=== PATIENT | male | born 1935 | race Caucasian/White ===

== ENCOUNTER 2016-05-14 07:55 | Observation (INO) | payer MEDICARE, MEDICAID ==
[~2016-05-14] VITALS: Ht 165.1 cm; Wt 57.0 kg
[~2016-05-14 07:55] MED LIST: ADVAIR DISK1 IN; ADVAIR DISK1 INH; ADVAIR HF1 IN; ALBUTEROL0.083 % IN; ALBUTEROL2.5 MG/3 M IN; ALL DAY10 MG PO; AMLODIPINE BESYL5 MG PO; AMLODIPINE10 MG PO; AMLODIPINE5 MG OR; ASPIRIN EC81 MG PO; ASPIRIN ENTERIC81 MG PO; ATORVASTATIN CA10 MG PO; AZITHROMYCIN500 MG PO; AZITHROMYCIN600 MG OR; BABY ASPIRIN81 MG OR; BACTRIM DS1 TAB OR; BACTRIM DS1 TAB PO; BUDESONID2 IN; CARDIZEM60 MG PO; CEFUROXIME500 MG PO; CHERATUSSIN OR; CIPRO500 MG OR; CLOPIDOGREL75 MG PO; COMBIVENT IN; COMBIVENT RESPIMAT IN; COREG3.125 MG OR; DALIRESP500 MCG PO; DIABETA2.5 MG PO; DIOVAN160 MG OR; DOXYCYCL HYC100 M3 OR; DOXYCYCL HYC100 M4 PO; DUONEB IN; EXCEDRI1 OR; FAMOTIDINE40 M1 OR; FLEXERIL PO; FLUTICASONE50 MCG; FUROSEMIDE40 MG PO; GUAIFENESIN400 MG OR; HYDRALAZINE10 MG OR; HYDROCO/APAP1 TA9 PO; IMDUR30 MG OR; IMDUR60 MG OR; ISOSORB MONO30 MG PO; ISOSORB MONO60 MG PO; ISOSORBIDE MONO60 MG PO; K-DUR/KLOR-CON10 MEQ PO; KEFLEX500 M1 PO; KLOR-CON M2020 MEQ OR; LASIX 40 MG TAB40 MG PO; LASIX40 MG OR; LEVAQUIN500 MG OR; LEVAQUIN500 MG PO; LIPITOR20 MG PO; LIPITOR40 MG OR; LIPITOR40 MG PO; LORTAB 5-325 MG1 TAB PO; LOSARTAN POT100 MG PO; MEDDOSEPAK OR; MEDDOSEPAK PO; METOPROL TAR25 MG OR; MUCINEX DM1 TA1 PO; MUCINEX600 MG OR; NAPROSYN500 MG OR; NITROQUICK0.4 MG SL; NITROSTAT0.4 MG PO; NORVASC5 MG OR; OXISTAT EX; PLAVIX75 MG OR; PLAVIX75 MG PO; PREDNISONE10 MG PO; PREDNISONE2.5 MG OR; PREDNISONE2.5 MG PO; PREDNISONE5 MG PO; PREDNISONE50 MG PO; PREVACID30 M1 OR; PRILOSEC10 MG PO; PROAIR HFA IN; PULMICORT0.25 MG/2 IN; PULMICORT90 MCG IN; ROBITUSS12 OR; ROBITUSSIN AC OR; SERTRALINE25 MG PO; SPIRIVA IN; SYMBICORT1 AE1 IN; SYMBICORT1 AER IN; THEO-24200 MG PO; TUSSIN100 MG/5 M OR; TYLENOL 500MG TAB PO; ULTRAM50 M1 PO; ZITHROMAX250 MG PO; ZOFRAN ODT4 MG OR; ZOVIRAX400 MG PO; [UNRECOGNIZED DRUG - CODE] OR; [UNRECOGNIZED DRUG - OTHER] PO
--- NOTE | 2016-05-14 07:55 | NUR ---
PT TO ROOM 10 VIA STRETCHER BY EMS.
--- NOTE | 2016-05-14 08:00 | NUR ---
PT WITH HOB ELEVATED, AIRWAY PATENT, RESP NON LABORED AT THIS TIME. LS DIMINISHED, PT REPORTS SHAKING AND PAIN ALL OVER. VSS. AFEBRILE
[2016-05-14 08:50] LABS: HEMATOCRIT 34.2 % (39.0-50.0); HEMOGLOBIN 10.4 g/dl (14.0-18.0); IMMATURE GRANULOCYTES 0.5 % (0.0-1.0); MEAN CELL VOLUME 87.5 fL CALC (80.0-100.0); MEAN CORPUSCULAR HGB 26.6 pG CALC (26.0-32.0); MEAN CORPUSCULAR HGB CONC 30.4 g/L CALC (32.0-36.0); NEUT# 8.58 thou/uL (1.82-7.42); RED BLOOD COUNT 3.91 mill/uL (4.70-6.10); RED CELL DISTRI WIDTH 16.6 % (11.5-15.5)
[2016-05-14 08:53] LABS: PROTHROMBIN TIME 11.4 SECONDS (9.0-12.5)
[2016-05-14 08:56] LABS: ALBUMIN 3.6 g/dL (3.2-5.0); ALKALINE PHOSPHATASE 120 u/l (38-126); ANION GAP 17 (6-22 (CALC)); BILIRUBIN, TOTAL 0.4 mg/dL (0.0-1.4); BUN 22 mg/dL (8-23); BUN/CREATININE RATIO 21 (12-20 (CALC)); CALCIUM 9.4 mg/dL (8.4-10.2); CARBON DIOXIDE 30 mmol/l (22-30); CHLORIDE 103 mmol/l (95-108); CPK 42 u/l (52-200); GFR > 60 ML/MIN (>=60 (CALC)); GFR FOR AFR.AMER. > 60 ML/MIN (>=60 (CALC)); GLUCOSE 123 mg/dL (82-115); POTASSIUM 4.6 mmol/l (3.5-5.1); SGOT/AST 19 u/l (19-48); SGPT/ALT 23 u/l (11-66); SODIUM 145 mmol/l (137-146); TOTAL PROTEIN 7.4 g/dL (6.3-8.2)
[2016-05-14 09:14] LABS: INFLUENZA A NONE DETECTED (NONE DETECT); INFLUENZA B NONE DETECTED (NONE DETECT)
[2016-05-14 09:26] LABS: MYOGLOBIN 59 ng/mL (0 - 121)
--- NOTE | 2016-05-14 11:18 | NUR ---
PT OOB TO USE URINAL. NO ASSIST NEEDED. PT VOIDED 200CC CLEAR YELLOW URINE.
--- NOTE | 2016-05-14 11:40 | NUR ---
PT TAKEN TO MED SURG VIA STRETCHER IN STABLE CONDITION.
[2016-05-14 11:59] VITALS: BP 133/76
--- NOTE | 2016-05-14 14:29 | NUR ---
PT ARRIVED TO FLOOR VIA STRETCHER ACCOMPANIED BY CODIE RN @ [id number]. PT DENIES PAIN. SOB W/ EXERTION NOTED. FALL PRECAUTIONS REINFORCED. PT. [place] DEE-NI'. PLAN OF CARE DISCUSSED. CALL LIGHT REVIEWED AND IN REACH. PT STATES UNDERSTANDING.
[2016-05-14 16:00] VITALS: BP 127/75
--- NOTE | 2016-05-14 16:07 | NUR ---
PT SLEEPING AT THIS TIME. CALL LIGHT WITHIN REACH.
[2016-05-14 19:14] VITALS: BP 107/56
--- NOTE | 2016-05-14 19:20 | NUR ---
REPORT RECEIVED FROM CATRACHO MONTANEZ,DAYNURSE; PT.UPRIGHT IN RECLINER AT THIS TIME WATCHING TV; NO S/S OF DISTRESS AND DENIES ANY NEEDS AT THE MOMENT; CALL LIGHT IS W/IN REACH ALONG W/BST, PT.ENCOURAGED TO CALL NEEDS ARISE
--- NOTE | 2016-05-14 22:15 | NUR ---
PT.HAS MOVED FROM RECLINER TO BED, IS UPRIGHT W/LIGHTS OFF, PT.REPORTS THAT HE SLEEPS AT HIGH FOWLERS POSITION OR HIGHER DUE TO HIS ACID REFLUX, LEFT UPRIGHT TO SLEEP; PT.ASSESSED, NO S/S OF DISTRESS, REPORTS MILD HEADACHE, DENIES SOB AT THIS TIME;URINAL EMPTIED OF 100CC CL YELLOW URINE; CALL LIGHT W/IN REACH,
[2016-05-14 23:29] VITALS: BP 135/66
--- NOTE | 2016-05-15 04:00 | NUR ---
ED CALLED TO REPORT PT.RUNNING AFIB ON MENTAL HEALTH COUNSELOR, PT.APPEARS ASYMPTOMATIC, V/S ASSESSED @120/81,HR70, NO SIGNS OF DISTRESS OR DISCOMFORT AT THIS TIME; EKG ORDERED AND SHOWING NORMAL SINUS RHYTHM, THESE RESULTS WERE COMFIRMED WITH IN ED AND TELEMETRY IS READING NORMAL SR AT THIS TIME; WILL CONTINUE TO MONITOR PT.CLOSELY
[2016-05-15 05:26] LABS: ANION GAP 17 (6-22 (CALC)); BUN 36 mg/dL (8-23); BUN/CREATININE RATIO 28 (12-20 (CALC)); CALCIUM 9.2 mg/dL (8.4-10.2); CARBON DIOXIDE 29 mmol/l (22-30); CHLORIDE 99 mmol/l (95-108); CREATININE 1.3 mg/dL (0.7-1.3); GFR 53 ML/MIN (>=60 (CALC)); GFR FOR AFR.AMER. > 60 ML/MIN (>=60 (CALC)); GLUCOSE 232 mg/dL (82-115); POTASSIUM 4.7 mmol/l (3.5-5.1); SODIUM 139 mmol/l (137-146)
[2016-05-15 05:27] LABS: HEMATOCRIT 31.9 % (39.0-50.0); HEMOGLOBIN 9.9 g/dl (14.0-18.0); IMMATURE GRANULOCYTES 1.4 % (0.0-1.0); MEAN CELL VOLUME 85.8 fL CALC (80.0-100.0); MEAN CORPUSCULAR HGB 26.6 pG CALC (26.0-32.0); NEUT# 4.65 thou/uL (1.82-7.42); RED BLOOD COUNT 3.72 mill/uL (4.70-6.10); RED CELL DISTRI WIDTH 16.3 % (11.5-15.5)
--- NOTE | 2016-05-15 06:06 | NUR ---
PT.IS AWAKE, STAYED AWAKE ALL NIGHT, NO SLEEP; NON DISTRESSED, JUST CANNOT SLEEP
--- NOTE | 2016-05-15 07:28 | NUR ---
REPORT RECEIVED FROM CATRACHO STEVENSON. PT DENIES PAIN. NO SOB NOTED. PLAN OF CARE DISCUSSED. REPORTING OF CONCERNS ENCOURAGED. CALL LIGHT REVIEWED AND IN REACH. PT STATES UNDERSTANDING.
[2016-05-15 10:07] VITALS: BP 143/83
[2016-05-15] MEDS ORDERED: MEDDOSEPAK PO (10:14)
[2016-05-15] MEDS ORDERED: ZITHROMAX250 MG PO (10:14)
--- NOTE | 2016-05-15 11:48 | NUR ---
Discharge instructions given. Patient verbalizes understanding of same. Discharged in stable condition via Wheelchair to Home with friend. All belongings sent with pt.
== END 2016-05-15 11:49 ==
LOC: ENPENDDIS → ED 07:55 → ED-I 10:50 → ED 10:56 → MS2 10:57
PROVIDERS: Emergency Medicine; ADMIT Internal Medicine; ATTEND Internal Medicine
DX: J44.1 Chronic obstructive pulmonary disease with (acute) exacerbation (principal); E11.22 Type 2 diabetes mellitus with diabetic chronic kidney disease; I13.0 Hypertensive heart and chronic kidney disease with heart failure and stage 1 through stage 4 chronic kidney disease, or unspecified chronic kidney disease; N18.3 Chronic kidney disease, stage 3 (moderate); I50.9 Heart failure, unspecified; J96.11 Chronic respiratory failure with hypoxia; I25.10 Atherosclerotic heart disease of native coronary artery without angina pectoris; E78.5 Hyperlipidemia, unspecified; H91.90 Unspecified hearing loss, unspecified ear; R06.02 Shortness of breath; Z95.1 Presence of aortocoronary bypass graft; Z99.81 Dependence on supplemental oxygen; Z87.891 Personal history of nicotine dependence; Z95.5 Presence of coronary angioplasty implant and graft
CPT/HCPCS: G0378; J1956

== ENCOUNTER 2016-05-19 07:43 | Emergency (ER) | payer MEDICARE, MEDICAID ==
[~2016-05-19] VITALS: Ht 165.1 cm; Wt 70.0 kg
[2016-05-19 08:26] LABS: HEMATOCRIT 40.4 % (39.0-50.0); HEMOGLOBIN 12.3 g/dl (14.0-18.0); IMMATURE GRANULOCYTES 4.3 % (0.0-1.0); MEAN CELL VOLUME 87.4 fL CALC (80.0-100.0); MEAN CORPUSCULAR HGB 26.6 pG CALC (26.0-32.0); MEAN CORPUSCULAR HGB CONC 30.4 g/L CALC (32.0-36.0); NEUT# 13.53 thou/uL (1.82-7.42); RED BLOOD COUNT 4.62 mill/uL (4.70-6.10); RED CELL DISTRI WIDTH 17.2 % (11.5-15.5)
[2016-05-19 08:35] LABS: ALBUMIN 4.2 g/dL (3.2-5.0); ALKALINE PHOSPHATASE 126 u/l (38-126); ANION GAP 17 (6-22 (CALC)); BILIRUBIN, TOTAL 0.6 mg/dL (0.0-1.4); BUN 29 mg/dL (8-23); BUN/CREATININE RATIO 30 (12-20 (CALC)); CALCIUM 8.9 mg/dL (8.4-10.2); CARBON DIOXIDE 29 mmol/l (22-30); CHLORIDE 103 mmol/l (95-108); GFR > 60 ML/MIN (>=60 (CALC)); GFR FOR AFR.AMER. > 60 ML/MIN (>=60 (CALC)); GLUCOSE 120 mg/dL (82-115); POTASSIUM 4.9 mmol/l (3.5-5.1); SGOT/AST 29 u/l (19-48); SGPT/ALT 48 u/l (11-66); SODIUM 144 mmol/l (137-146)
[2016-05-19 08:48] LABS: MYOGLOBIN 86 ng/mL (0 - 121)
[2016-05-19 09:04] LABS: PROTHROMBIN TIME 11.4 SECONDS (9.0-12.5)
[2016-05-19 11:19] VITALS: BP 116/61
== END 2016-05-19 11:19 ==
LOC: ED 07:43 → ED-I 08:15 → ED 11:19
PROVIDERS: Emergency Medicine
PROC: 0BH17EZ Insertion of Endotracheal Airway into Trachea, Via Natural or Artificial Opening (ICD-10-PCS; principal; 2016-05-19)
DX: J96.00 Acute respiratory failure, unspecified whether with hypoxia or hypercapnia (principal); J44.1 Chronic obstructive pulmonary disease with (acute) exacerbation; R06.02 Shortness of breath; I10 Essential (primary) hypertension; H91.93 Unspecified hearing loss, bilateral
CPT/HCPCS: J2060

== ENCOUNTER 2016-11-20 10:59 | Inpatient (IN) | payer MEDICARE, MEDICAID ==
[~2016-11-20] VITALS: Ht 165.1 cm; Wt 59.0 kg
[~2016-11-20 10:59] MED LIST changes: -PRILOSEC10 MG PO; +PRILOSEC20 MG/CAP PO
[2016-11-20 11:45] LABS: HEMATOCRIT 40.9 % (39.0-50.0); IMMATURE GRANULOCYTES 4.4 % (0.0-1.0); MEAN CELL VOLUME 89.9 fL CALC (80.0-100.0); MEAN CORPUSCULAR HGB 28.6 pG CALC (26.0-32.0); MEAN CORPUSCULAR HGB CONC 31.8 g/L CALC (32.0-36.0); NEUT# 13.34 thou/uL (1.82-7.42); RED BLOOD COUNT 4.55 mill/uL (4.70-6.10); RED CELL DISTRI WIDTH 15.9 % (11.5-15.5)
[2016-11-20 12:03] LABS: ALBUMIN 3.7 g/dL (3.2-5.0); ALKALINE PHOSPHATASE 156 u/l (38-126); ANION GAP 20 (6-22 (CALC)); BILIRUBIN, TOTAL 0.7 mg/dL (0.0-1.4); BUN 36 mg/dL (8-23); BUN/CREATININE RATIO 30 (12-20 (CALC)); CALCIUM 10.3 mg/dL (8.4-10.2); CARBON DIOXIDE 29 mmol/l (22-30); CHLORIDE 101 mmol/l (95-108); CREATININE 1.2 mg/dL (0.7-1.3); GFR 58 ML/MIN (>=60 (CALC)); GFR FOR AFR.AMER. > 60 ML/MIN (>=60 (CALC)); GLUCOSE 177 mg/dL (82-115); SGOT/AST 32 u/l (19-48); SGPT/ALT 30 u/l (11-66); SODIUM 145 mmol/l (137-146); TOTAL PROTEIN 7.6 g/dL (6.3-8.2)
[2016-11-20 12:15] LABS: MYOGLOBIN 330 ng/mL (0 - 121)
[2016-11-20] MEDS ORDERED: BUMETANIDE0.5 MG PO (12:57)
[2016-11-20] MEDS ORDERED: ISOSORB MONO30 MG PO (12:58)
[2016-11-20 14:00] VITALS: BP 105/59
[2016-11-20 14:15] LABS: URINE BILIRUBIN - DIPSTICK NEGATIVE (NEGATIVE); URINE BLOOD DIPSTICK TRACE-LYSED (NEGATIVE); URINE COLOR YELLOW; URINE GLUCOSE - DIPSTICK NEGATIVE (NEGATIVE); URINE KETONE NEGATIVE (NEGATIVE); URINE LEUK ESTERASE NEGATIVE (NEGATIVE); URINE NITRITE - DIPSTICK NEGATIVE (Negative); URINE PROTEIN - DIPSTICK 30 mg/dL (NEG-TRACE); URINE SPECIFIC GRAVITY 1.025; URINE UROBILINOGEN - DIPSTICK 0.2 E.U./dL (0.2)
[2016-11-20 14:16] LABS: URINE CLARITY SLIGHT CLOUDY; URINE MUCUS MODERATE hpf (NONE-FEW); URINE RBC 0-2 RBC/hpf (0-5)
[2016-11-20 15:20] VITALS: BP 103/61
[2016-11-20 19:25] VITALS: BP 105/66
[2016-11-21 03:45] VITALS: BP 130/62
[2016-11-21 06:06] LABS: HEMATOCRIT 35.9 % (39.0-50.0); HEMOGLOBIN 11.5 g/dl (14.0-18.0); MEAN CELL VOLUME 90.4 fL CALC (80.0-100.0); RED BLOOD COUNT 3.97 mill/uL (4.70-6.10); RED CELL DISTRI WIDTH 15.9 % (11.5-15.5)
[2016-11-21 06:07] LABS: ANION GAP 15 (6-22 (CALC)); BUN 31 mg/dL (8-23); BUN/CREATININE RATIO 32 (12-20 (CALC)); CALCIUM 9.4 mg/dL (8.4-10.2); CARBON DIOXIDE 32 mmol/l (22-30); CHLORIDE 102 mmol/l (95-108); GFR > 60 ML/MIN (>=60 (CALC)); GFR FOR AFR.AMER. > 60 ML/MIN (>=60 (CALC)); GLUCOSE 153 mg/dL (82-115); POTASSIUM 4.4 mmol/l (3.5-5.1); SODIUM 145 mmol/l (137-146)
[2016-11-21 08:24] VITALS: BP 141/73
[2016-11-21 14:29] LABS: C. DIFFICILE TOXIN A&B NEGATIVE (NEGATIVE)
[2016-11-21 16:00] VITALS: BP 124/71
[2016-11-21 20:15] VITALS: BP 134/74
[2016-11-22 04:49] VITALS: BP 119/67
[2016-11-22 06:03] LABS: ANION GAP 15 (6-22 (CALC)); BUN 27 mg/dL (8-23); BUN/CREATININE RATIO 31 (12-20 (CALC)); CARBON DIOXIDE 30 mmol/l (22-30); CHLORIDE 104 mmol/l (95-108); CREATININE 0.9 mg/dL (0.7-1.3); GFR > 60 ML/MIN (>=60 (CALC)); GFR FOR AFR.AMER. > 60 ML/MIN (>=60 (CALC)); GLUCOSE 200 mg/dL (82-115); SODIUM 144 mmol/l (137-146)
[2016-11-22 06:05] LABS: HEMATOCRIT 34.5 % (39.0-50.0); HEMOGLOBIN 10.9 g/dl (14.0-18.0); IMMATURE GRANULOCYTES 5.6 % (0.0-1.0); MEAN CELL VOLUME 90.8 fL CALC (80.0-100.0); MEAN CORPUSCULAR HGB 28.7 pG CALC (26.0-32.0); MEAN CORPUSCULAR HGB CONC 31.6 g/L CALC (32.0-36.0); PLATELET COUNT 418 thou/uL (130-400); RED CELL DISTRI WIDTH 15.9 % (11.5-15.5)
[2016-11-22 06:43] LABS: MANUAL DIFFERENTIAL YES
[2016-11-22 08:48] VITALS: BP 140/68
[2016-11-22 16:21] VITALS: BP 126/64
[2016-11-22 19:18] VITALS: BP 136/71
[2016-11-23 05:22] VITALS: BP 140/64
[2016-11-23 05:22] LABS: HEMATOCRIT 31.6 % (39.0-50.0); IMMATURE GRANULOCYTES 5.4 % (0.0-1.0); MEAN CELL VOLUME 91.1 fL CALC (80.0-100.0); MEAN CORPUSCULAR HGB 28.8 pG CALC (26.0-32.0); MEAN CORPUSCULAR HGB CONC 31.6 g/L CALC (32.0-36.0); NEUT# 11.33 thou/uL (1.82-7.42); RED BLOOD COUNT 3.47 mill/uL (4.70-6.10); RED CELL DISTRI WIDTH 15.9 % (11.5-15.5)
[2016-11-23 05:29] LABS: ALBUMIN 2.3 g/dL (3.2-5.0); ALKALINE PHOSPHATASE 84 u/l (38-126); AMYLASE < 30 u/l (30-110); ANION GAP 12 (6-22 (CALC)); BILIRUBIN, TOTAL 0.2 mg/dL (0.0-1.4); BUN 25 mg/dL (8-23); BUN/CREATININE RATIO 32 (12-20 (CALC)); CALCIUM 8.6 mg/dL (8.4-10.2); CARBON DIOXIDE 29 mmol/l (22-30); CHLORIDE 106 mmol/l (95-108); CREATININE 0.8 mg/dL (0.7-1.3); GFR > 60 ML/MIN (>=60 (CALC)); GFR FOR AFR.AMER. > 60 ML/MIN (>=60 (CALC)); GLUCOSE 205 mg/dL (82-115); LIPASE < 10 u/l (23-300); POTASSIUM 3.9 mmol/l (3.5-5.1); SGOT/AST 15 u/l (19-48); SGPT/ALT 24 u/l (11-66); SODIUM 143 mmol/l (137-146); TOTAL PROTEIN 4.9 g/dL (6.3-8.2)
[2016-11-23 08:34] VITALS: BP 142/69
[2016-11-23 15:38] VITALS: BP 122/65
[2016-11-23 18:40] VITALS: BP 130/64
[2016-11-24 03:45] VITALS: BP 140/67
[2016-11-24 06:08] LABS: HEMATOCRIT 32.4 % (39.0-50.0); HEMOGLOBIN 10.3 g/dl (14.0-18.0); MEAN CELL VOLUME 90.5 fL CALC (80.0-100.0); MEAN CORPUSCULAR HGB 28.8 pG CALC (26.0-32.0); MEAN CORPUSCULAR HGB CONC 31.8 g/L CALC (32.0-36.0); PLATELET COUNT 383 thou/uL (130-400); RED BLOOD COUNT 3.58 mill/uL (4.70-6.10); RED CELL DISTRI WIDTH 15.7 % (11.5-15.5)
[2016-11-24 06:18] LABS: ANION GAP 11 (6-22 (CALC)); BUN 22 mg/dL (8-23); BUN/CREATININE RATIO 28 (12-20 (CALC)); CALCIUM 8.7 mg/dL (8.4-10.2); CARBON DIOXIDE 29 mmol/l (22-30); CHLORIDE 103 mmol/l (95-108); CREATININE 0.8 mg/dL (0.7-1.3); GFR > 60 ML/MIN (>=60 (CALC)); GFR FOR AFR.AMER. > 60 ML/MIN (>=60 (CALC)); GLUCOSE 159 mg/dL (82-115); MAGNESIUM 1.8 mg/dL (1.6-2.3); POTASSIUM 4.1 mmol/l (3.5-5.1); SODIUM 139 mmol/l (137-146)
[2016-11-24 06:59] LABS: BAND 1 % (0-8); IMMATURE GRANULOCYTES 6.8 % (0.0-1.0); MANUAL DIFFERENTIAL YES
[2016-11-24 07:31] VITALS: BP 130/66
[2016-11-24 16:02] VITALS: BP 129/70
[2016-11-24 19:05] VITALS: BP 130/67
[2016-11-25 03:37] VITALS: BP 131/74
[2016-11-25 06:30] LABS: HEMATOCRIT 36.5 % (39.0-50.0); HEMOGLOBIN 11.7 g/dl (14.0-18.0); IMMATURE GRANULOCYTES 5.1 % (0.0-1.0); MEAN CELL VOLUME 89.7 fL CALC (80.0-100.0); MEAN CORPUSCULAR HGB 28.7 pG CALC (26.0-32.0); MEAN CORPUSCULAR HGB CONC 32.1 g/L CALC (32.0-36.0); PLATELET COUNT 425 thou/uL (130-400); RED BLOOD COUNT 4.07 mill/uL (4.70-6.10); RED CELL DISTRI WIDTH 15.6 % (11.5-15.5)
[2016-11-25 06:46] LABS: ANION GAP 13 (6-22 (CALC)); BUN 22 mg/dL (8-23); BUN/CREATININE RATIO 30 (12-20 (CALC)); CALCIUM 8.7 mg/dL (8.4-10.2); CARBON DIOXIDE 31 mmol/l (22-30); CHLORIDE 99 mmol/l (95-108); CREATININE 0.8 mg/dL (0.7-1.3); GFR > 60 ML/MIN (>=60 (CALC)); GFR FOR AFR.AMER. > 60 ML/MIN (>=60 (CALC)); GLUCOSE 209 mg/dL (82-115); MAGNESIUM 1.8 mg/dL (1.6-2.3); POTASSIUM 4.6 mmol/l (3.5-5.1); SODIUM 138 mmol/l (137-146)
[2016-11-25 07:04] LABS: MANUAL DIFFERENTIAL YES
[2016-11-25 07:05] LABS: BAND 2 % (0-8)
[2016-11-25 08:44] VITALS: BP 131/74
[2016-11-25] MEDS ORDERED: ZITHROMAX500 MG PO (10:16)
[2016-11-25] MEDS ORDERED: ROBITUSSIN AC10 ML PO (10:16)
[2016-11-25] MEDS ORDERED: PREDNISONE10 MG PO (10:16)
[2016-11-25] MEDS ORDERED: VANTIN200 M1 PO (10:16)
[2016-11-25] MEDS ORDERED: FLORASTOR250 M1 PO (10:16)
[2016-11-25] MEDS ORDERED: DUONEB IN (10:16)
== END 2016-11-25 12:35 | disposition home or self-care (01) | DRG 190 ==
LOC: ED 10:59 → ED-I 12:06 → ED 12:55 → MS2 12:56
PROVIDERS: Emergency Medicine; Internal Medicine; Nurse Practitioner Family; ADMIT Internal Medicine; ATTEND Internal Medicine
DX: J44.0 Chronic obstructive pulmonary disease with (acute) lower respiratory infection (principal); J18.9 Pneumonia, unspecified organism; J96.11 Chronic respiratory failure with hypoxia; I13.0 Hypertensive heart and chronic kidney disease with heart failure and stage 1 through stage 4 chronic kidney disease, or unspecified chronic kidney disease; I50.22 Chronic systolic (congestive) heart failure; F03.90 Unspecified dementia, unspecified severity, without behavioral disturbance, psychotic disturbance, mood disturbance, and anxiety; J96.12 Chronic respiratory failure with hypercapnia; J44.1 Chronic obstructive pulmonary disease with (acute) exacerbation; E11.22 Type 2 diabetes mellitus with diabetic chronic kidney disease; N18.3 Chronic kidney disease, stage 3 (moderate); H91.90 Unspecified hearing loss, unspecified ear; I25.10 Atherosclerotic heart disease of native coronary artery without angina pectoris; I25.5 Ischemic cardiomyopathy; D50.9 Iron deficiency anemia, unspecified; E78.5 Hyperlipidemia, unspecified; K21.9 Gastro-esophageal reflux disease without esophagitis; M19.90 Unspecified osteoarthritis, unspecified site; K76.89 Other specified diseases of liver; N28.1 Cyst of kidney, acquired; I25.2 Old myocardial infarction; Z99.81 Dependence on supplemental oxygen; Z87.891 Personal history of nicotine dependence; Z95.5 Presence of coronary angioplasty implant and graft; Z95.1 Presence of aortocoronary bypass graft

== ENCOUNTER 2017-03-12 11:26 | Inpatient (IN) | payer MEDICARE, MEDICAID ==
[~2017-03-12] VITALS: Ht 165.1 cm; Wt 54.5 kg
[~2017-03-12 11:26] MED LIST changes: +BUMETANIDE0.5 MG PO; +FLORASTOR250 M1 PO; +ROBITUSSIN AC10 ML PO; +VANTIN200 M1 PO; +ZITHROMAX500 MG PO
--- NOTE | 2017-03-12 11:36 | NUR ---
PT IN BATHROOM WHEN CALLED
--- NOTE | 2017-03-12 12:01 | NUR ---
PT TO ROOM PER W/C
--- NOTE | 2017-03-12 12:30 | NUR ---
PATIENT RESTING ON STRETCHER, PITTING EDEMA +4 TO BILATERAL LOWER EXTREMITIES. DEMINISHED LUNG SOUNDS BILATERALLY.
--- NOTE | 2017-03-12 13:00 | NUR ---
PATIENT BECAME SHORT OF BREATH WHILE BEING ASSISTED TO SIDE OF BED TO USE URINAL. INFORMED.
[2017-03-12 13:19] LABS: HEMATOCRIT 33.3 % (39.0-50.0); HEMOGLOBIN 10.4 g/dl (14.0-18.0); IMMATURE GRANULOCYTES 0.3 % (0.0-1.0); MEAN CELL VOLUME 99.4 fL CALC (80.0-100.0); MEAN CORPUSCULAR HGB CONC 31.2 g/L CALC (32.0-36.0); NEUT# 5.51 thou/uL (1.82-7.42); RED BLOOD COUNT 3.35 mill/uL (4.70-6.10); RED CELL DISTRI WIDTH 14.5 % (11.5-15.5)
[2017-03-12 13:41] LABS: ANION GAP 14 (6-22 (CALC)); BUN 19 mg/dL (8-23); BUN/CREATININE RATIO 19 (12-20 (CALC)); CALCIUM 10.1 mg/dL (8.4-10.2); CARBON DIOXIDE 27 mmol/l (22-30); CHLORIDE 105 mmol/l (95-108); GFR > 60 ML/MIN (>=60 (CALC)); GFR FOR AFR.AMER. > 60 ML/MIN (>=60 (CALC)); GLUCOSE 106 mg/dL (82-115); POTASSIUM 4.1 mmol/l (3.5-5.1); SODIUM 142 mmol/l (137-146)
--- NOTE | 2017-03-12 13:56 | NUR ---
PATIENT RESTING ON STRETCHER, CALL LIGHT WITHIN REACH. WARM BLANKETS PROVIDED PER REQUEST. WILL CONTINUE TO MONITOR.
--- NOTE | 2017-03-12 14:23 | NUR ---
PATIENT CONFIRMS TAKING MEDICATION RECONCILED BUT UNABLE TO TELL DATE AND TIME THAT PATIENT LAST TOOK MEDS
--- NOTE | 2017-03-12 14:30 | NUR ---
MD AT BEDSIDE TO DISCUSS RESULTS.
--- NOTE | 2017-03-12 15:22 | NUR ---
REPORT GIVEN TO SHER BUTCHER.
--- NOTE | 2017-03-12 15:53 | NUR ---
DR LATHAM @ BEDSIDE WITH PT.
--- NOTE | 2017-03-12 16:00 | NUR ---
PT ARRIVED FROM ER VIA STRETCHER ACCOMPANIED BY STAFF. IV SITE IS FREE FROM REDNESS OR EDEMA. TELE MONITOR IN PLACE.
--- NOTE | 2017-03-12 16:17 | NUR ---
PTS RN BUSY WITH A STEMI. THIS RN TRANSPORTED PT TO [facility] VIA STRETCHER W/TELE IN STABLE CONDITION. PTS BELONGINGS; CLOTHES, CANE, PORT O2 WITH PT.
[2017-03-12 16:23] VITALS: BP 134/75
[2017-03-12] MEDS ORDERED: VALTREX500 MG PO (16:29)
--- NOTE | 2017-03-12 17:14 | NUR ---
ASSESSMENT IS COMPLETED: IV SITE IS FREE FROM REDNESS OR EDEMA. PT HAS +3 PITTING EDEMA NOTED ON BILATERAL FEET. BREATH SOUNDS ARE DIMINISHED AND CLEAR. O2 @ 2LITERS WITH NC. CONTINUE TO OBSERVE AND MONITOR.
--- NOTE | 2017-03-12 19:10 | NUR ---
STANDING ON SIDE OF BED USING URINAL WITH JUAN DAVID ADAMS'S STANDBY ASSISTNACE.
[2017-03-12 19:30] VITALS: BP 129/76
--- NOTE | 2017-03-12 19:45 | NUR ---
PT IN BED WATCHING TV, RESPIRATIONS EVEN AND UNLABORED ON O2 @3L VIA NC. BUMEX IV GIVEN AT THIS TIME, URINAL AT BED SIDE. PT IS VERY [place]. ENCOURAGED TO USE CALL LIGHT FOR ASSISTANCE. WILL CONTINUE TO MONITOR.
--- NOTE | 2017-03-12 21:00 | NUR ---
ACCUCHECK 278, BED TIME SNACK PROVIDED.
--- NOTE | 2017-03-12 22:00 | NUR ---
PT CALLING FOR A SECOND SNACK AND A DRINK, ATTEMPTED TO DO TEACHING ON DIABETES, PT IS SO [place], STATE "WHAT I CANT HEAR YOU", PROVIDED WITH RIGO DODD AND DIET DRINK.
--- NOTE | 2017-03-12 23:00 | NUR ---
CALLING FOR COFFEE, PROIVED WITH DECAF COFFEE AT THIS TIME.
[2017-03-12 23:52] VITALS: BP 109/61
--- NOTE | 2017-03-13 01:00 | NUR ---
PT NOTED TO BE ANXIOUS, STANDING ON SIDE OF BED VOIDING 100ML IN URINAL THEN BACK TO BED, C/O RIGHT HIP PAIN 10/08 NEW ORDER RECEVIED FROM DR. MALONEY FOR XANAX X1 AND TRAMADOL PRN FOR PAIN, MEDICATED AT 0133. WILL CONTINUE TO MONITOR.
--- NOTE | 2017-03-13 03:30 | NUR ---
SITTING ON SIDE OF BED REQUESTING A DIET SODA AND SOMETHING TO EAT. DIET DRINK PROVIDED, RESPIRATIONS EVEN AND UNLABORED, DENIES PAIN AT THIS TIME.
[2017-03-13 05:10] VITALS: BP 124/61
[2017-03-13 06:40] LABS: HEMATOCRIT 29.1 % (39.0-50.0); HEMOGLOBIN 9.4 g/dl (14.0-18.0); MEAN CORPUSCULAR HGB 31.3 pG CALC (26.0-32.0); MEAN CORPUSCULAR HGB CONC 32.3 g/L CALC (32.0-36.0)
[2017-03-13 06:53] LABS: ANION GAP 16 (6-22 (CALC)); BUN 34 mg/dL (8-23); BUN/CREATININE RATIO 27 (12-20 (CALC)); CALCIUM 9.7 mg/dL (8.4-10.2); CARBON DIOXIDE 31 mmol/l (22-30); CHLORIDE 98 mmol/l (95-108); CREATININE 1.2 mg/dL (0.7-1.3); GFR 58 ML/MIN (>=60 (CALC)); GFR FOR AFR.AMER. > 60 ML/MIN (>=60 (CALC)); GLUCOSE 258 mg/dL (82-115); POTASSIUM 4.4 mmol/l (3.5-5.1); SODIUM 141 mmol/l (137-146)
--- NOTE | 2017-03-13 07:23 | NUR ---
BEDSIDE REPORT RECEIVED FROM SHER MARISCAL. PT SITTING UPRIGHT IN BED. SLEEPING. CALL LIGHT WITHIN REACH.
[2017-03-13 08:18] VITALS: BP 150/77
[2017-03-13 12:36] VITALS: BP 114/63
--- NOTE | 2017-03-13 15:56 | NUR ---
PT IN SEMI FOWLERS POSITION. SLEEPNIG AT THIS TIME. CALL LIGHT WITHIN REACH.
[2017-03-13 17:36] VITALS: BP 125/74
[2017-03-13 18:05] VITALS: BP 114/52
--- NOTE | 2017-03-13 19:30 | NUR ---
PT ALERT AND ORIENTED. HARD OF HEARING. RESP EVEN AND UNLABORED WITH O2 IN PLACE. LUNGS DIMINISHED THROUGHOUT. NO DISTRESSED NOTED. TELE IN PLACE. ABD SOFT WITH ACTIVE BOWEL SOUNDS. +2 PITTING EDEMA ANKLES NOTED; PT ENCOURAGED TO ELEVATE. PEDAL PULSES PALPATED BILAT. IV LFA PATENT, FLUSHED WITHOUT ANY DIFFICULTY. PT DENIES ANY PAIN OR DISCOMFORT. SAFETY PRECAUTIONS REINFORCED. FREQUENT ROUNDS MADE. CALL LIGHT WITHIN REACH.
[2017-03-13 23:59] VITALS: BP 105/53
--- NOTE | 2017-03-14 00:02 | NUR ---
PT APPEARS TO BE SLEEPING. RESP EVEN AND UNLABORED, O2 IN PLACE. NO DISTRESS NOTED. TELE IN PLACE. CALL LIGHT WITHIN REACH.
--- NOTE | 2017-03-14 03:10 | NUR ---
PT OOB TO USE BEDSIDE URINAL. PT DENIES ANY PAIN OR DISCOMFORT. RESP EVEN AND UNLABORED WITH O2 IN PLACE. PT ALERT AND ORIENTED; AGE AND MONTH CORRECT. TELE IN PLACE. PT ASSISTED BACK TO BED. CALL LIGHT WITHIN REACH.
[2017-03-14 05:08] LABS: HEMATOCRIT 28.8 % (39.0-50.0); HEMOGLOBIN 9.5 g/dl (14.0-18.0); IMMATURE GRANULOCYTES 0.4 % (0.0-1.0); MEAN CORPUSCULAR HGB 32.3 pG CALC (26.0-32.0); NEUT# 9.9 thou/uL (1.82-7.42); RED BLOOD COUNT 2.94 mill/uL (4.70-6.10); RED CELL DISTRI WIDTH 14.1 % (11.5-15.5)
[2017-03-14 05:12] VITALS: BP 130/66
[2017-03-14 05:21] LABS: ANION GAP 18 (6-22 (CALC)); BUN 44 mg/dL (8-23); BUN/CREATININE RATIO 37 (12-20 (CALC)); CALCIUM 9.8 mg/dL (8.4-10.2); CARBON DIOXIDE 30 mmol/l (22-30); CHLORIDE 98 mmol/l (95-108); CREATININE 1.2 mg/dL (0.7-1.3); GFR 58 ML/MIN (>=60 (CALC)); GFR FOR AFR.AMER. > 60 ML/MIN (>=60 (CALC)); GLUCOSE 240 mg/dL (82-115); POTASSIUM 4.3 mmol/l (3.5-5.1); SODIUM 141 mmol/l (137-146)
--- NOTE | 2017-03-14 07:45 | NUR ---
REPORT RECEIVED FROM SHER FERNANDO. PT IN SEMI FOWLERS POSITION. DENIES PAIN. COMPLAINS OF SORE THROAT. FALL PRECAUTIONS REINFORCED. REPORTING OF CONCERNS ENCORUAGED. CALL LIGHT REVIEWED AND IN REACH. PT STATES UNDERSTANDING.
[2017-03-14 08:59] VITALS: BP 122/63
--- NOTE | 2017-03-14 10:00 | NUR ---
DR. MALONEY IN TO SEE PT AT THIS TIME.
[2017-03-14 12:30] VITALS: BP 139/60
[2017-03-14 16:51] VITALS: BP 104/53
--- NOTE | 2017-03-14 17:21 | NUR ---
PT REQUEST BREATHING TREATMENT. NO SOB NOTED. DUONEB STARTED AT THIS TIME. WILL CONTINUE TO MONITOR.
[2017-03-14 18:05] VITALS: BP 137/67
--- NOTE | 2017-03-14 19:45 | NUR ---
PT ALERT AND ORIENTED. RESP EVEN AND UNLABORED WITH O2 IN PLACE. LUNGS DIMINISHED THROUGHOUT. NO DISTRESS NOTED. TELE IN PLACE. ABD SOFT WITH ACTIVE BOWEL SOUNDS. EDEMA +1 ANKLES BILAT NOTED; PT ENCOURAGED TO ELEVATE. IV LFA FLUSHED WITHOUT DIFFICULTY. PT DENIES ANY PAIN OR DISCOMFORT. PT HARD OF HEARING. PT ENCOURAGED TO USE CALL LIGHT FOR ASSISTANCE. FREQUENT ROUNDS MADE. CALL LIGHT WITHIN REACH.
--- NOTE | 2017-03-15 | NUR ---
PT STATES ABD PAIN; 9. PAIN ADDRESSED. RESP EVEN AND UNLABORED WITH O2 IN PLACE. TELE IN PLACE. WILL CONTINUE EVALUATE PAIN. PT REPOSITIONED FOR COMFORT. CALL LIGHT WITHIN REACH.
[2017-03-15 00:12] VITALS: BP 134/66
--- NOTE | 2017-03-15 04:05 | NUR ---
RESP EVEN AND UNLABORED WITH O2 IN PLACE. NO DISTRESS NOTED. TELE IN PLACE. CALL LIGHT WITHIN REACH.
[2017-03-15 05:17] VITALS: BP 141/71
[2017-03-15 05:42] LABS: HEMATOCRIT 29.9 % (39.0-50.0); HEMOGLOBIN 9.6 g/dl (14.0-18.0); IMMATURE GRANULOCYTES 0.8 % (0.0-1.0); MEAN CELL VOLUME 98.7 fL CALC (80.0-100.0); MEAN CORPUSCULAR HGB 31.7 pG CALC (26.0-32.0); MEAN CORPUSCULAR HGB CONC 32.1 g/L CALC (32.0-36.0); NEUT# 8.6 thou/uL (1.82-7.42); RED BLOOD COUNT 3.03 mill/uL (4.70-6.10); RED CELL DISTRI WIDTH 14.3 % (11.5-15.5)
[2017-03-15 05:59] LABS: ANION GAP 15 (6-22 (CALC)); BUN 50 mg/dL (8-23); BUN/CREATININE RATIO 39 (12-20 (CALC)); CALCIUM 9.8 mg/dL (8.4-10.2); CARBON DIOXIDE 30 mmol/l (22-30); CHLORIDE 99 mmol/l (95-108); CREATININE 1.3 mg/dL (0.7-1.3); GFR 53 ML/MIN (>=60 (CALC)); GFR FOR AFR.AMER. > 60 ML/MIN (>=60 (CALC)); GLUCOSE 194 mg/dL (82-115); POTASSIUM 4.5 mmol/l (3.5-5.1); SODIUM 140 mmol/l (137-146)
[2017-03-15 07:00] VITALS: BP 126/66
--- NOTE | 2017-03-15 07:45 | NUR ---
RECEIVED BEDSIDE REPORT FROM KASSIE OLIVAREZ. IN HIGH FOWLERS EATING BREAKFAST. RESPS EVEN AND UNLABORED ON O2 VIA NC, TELE MONITOR IN PLACE. DENIES PAIN OR DISCOMFORT. PLAN OF CARE DISCUSSED. SAFETY PRECAUTIONS REINFORCED. BED IN LOWEST POSITION WITH WHEELS LOCKED. CALL LIGHT WITHIN REACH. ENCOURAGED PT TO CALL FOR ANY NEEDS.
--- NOTE | 2017-03-15 11:35 | NUR ---
SITTING IN BEDSIDE CHAIR, RESPS EVEN AND UNLABORED ON O2 VIA NC, TELE MONITOR IN PLACE. DENIES PAIN OR DISCOMFORT. DR WALDRON IN WITH PT, NEW ORDERS RECEIVED. CALL LIGHT WITHIN REACH. WILL CONTINUE TO MONITOR.
[2017-03-15 12:10] VITALS: BP 132/55
[2017-03-15] MEDS ORDERED: BUMETANIDE1 MG PO (12:54)
[2017-03-15] MEDS ORDERED: PREDNISONE10 MG PO (12:54)
--- NOTE | 2017-03-15 13:05 | NUR ---
DR CLARK IN WITH PT, NO NEW ORDERS RECEIVED.
--- NOTE | 2017-03-15 16:58 | NUR ---
Discharge instructions given. Patient verbalizes understanding of same. Discharged in stable condition via Wheelchair to Home with friend. All belongings sent with pt.
== END 2017-03-15 16:54 | disposition home health service (06) | DRG 191 ==
LOC: ED 11:26 → ED-I 14:35 → ED 14:50 → MS2 14:51
PROVIDERS: Family Medicine; Internal Medicine; ADMIT Internal Medicine; ATTEND Internal Medicine
PROC: 3E0234Z Introduction of Serum, Toxoid and Vaccine into Muscle, Percutaneous Approach (ICD-10-PCS; principal; 2017-03-14)
DX: J44.1 Chronic obstructive pulmonary disease with (acute) exacerbation (principal); I13.0 Hypertensive heart and chronic kidney disease with heart failure and stage 1 through stage 4 chronic kidney disease, or unspecified chronic kidney disease; J96.11 Chronic respiratory failure with hypoxia; E11.22 Type 2 diabetes mellitus with diabetic chronic kidney disease; I50.22 Chronic systolic (congestive) heart failure; I25.5 Ischemic cardiomyopathy; I25.10 Atherosclerotic heart disease of native coronary artery without angina pectoris; N18.3 Chronic kidney disease, stage 3 (moderate); E78.5 Hyperlipidemia, unspecified; D64.9 Anemia, unspecified; H91.90 Unspecified hearing loss, unspecified ear; H54.7 Unspecified visual loss; M19.90 Unspecified osteoarthritis, unspecified site; K21.9 Gastro-esophageal reflux disease without esophagitis; Z95.1 Presence of aortocoronary bypass graft; Z95.5 Presence of coronary angioplasty implant and graft; Z87.891 Personal history of nicotine dependence; Z23 Encounter for immunization; Z95.820 Peripheral vascular angioplasty status with implants and grafts; Z99.81 Dependence on supplemental oxygen
CPT/HCPCS: G0378; J1650

== ENCOUNTER 2017-06-04 12:29 | Emergency (ER) | payer MEDICARE, MEDICAID ==
[~2017-06-04] VITALS: Ht 165.1 cm; Wt 51.8 kg
[~2017-06-04 12:29] MED LIST changes: +BUMETANIDE1 MG PO; +VALTREX500 MG PO
[2017-06-04] MEDS ORDERED: TESSALON PER100 MG PO (13:44)
[2017-06-04] MEDS ORDERED: ZITHROMAX250 MG PO (13:44)
[2017-06-04 15:15] VITALS: BP 119/57
== END 2017-06-04 16:12 | disposition home or self-care (01) ==
LOC: ED 12:29
DX: J06.9 Acute upper respiratory infection, unspecified (principal); I25.10 Atherosclerotic heart disease of native coronary artery without angina pectoris; E11.22 Type 2 diabetes mellitus with diabetic chronic kidney disease; I12.9 Hypertensive chronic kidney disease with stage 1 through stage 4 chronic kidney disease, or unspecified chronic kidney disease; N18.3 Chronic kidney disease, stage 3 (moderate); J44.9 Chronic obstructive pulmonary disease, unspecified; E78.5 Hyperlipidemia, unspecified; J96.11 Chronic respiratory failure with hypoxia; Z95.5 Presence of coronary angioplasty implant and graft; Z95.1 Presence of aortocoronary bypass graft

== ENCOUNTER 2018-01-17 11:01 | Emergency (ER) | payer MEDICARE, MEDICAID ==
[~2018-01-17] VITALS: Ht 165.1 cm; Wt 50.9 kg
[~2018-01-17 11:01] MED LIST changes: +TESSALON PER100 MG PO
[2018-01-17 12:00] LABS: HEMATOCRIT 35.5 % (39.0-50.0); HEMOGLOBIN 11.4 g/dl (14.0-18.0); IMMATURE GRANULOCYTES 0.1 % (0.0-5.0); MEAN CELL VOLUME 101.4 fL CALC (80.0-100.0); MEAN CORPUSCULAR HGB 32.6 pG CALC (26.0-32.0); MEAN CORPUSCULAR HGB CONC 32.1 g/L CALC (32.0-36.0); NEUT# 5.85 thou/uL (1.82-7.42); RED BLOOD COUNT 3.5 mill/uL (4.70-6.10); RED CELL DISTRI WIDTH 14.5 % (11.5-15.5)
[2018-01-17 12:19] LABS: URINE BILIRUBIN - DIPSTICK NEGATIVE (NEGATIVE); URINE BLOOD DIPSTICK NEGATIVE (NEGATIVE); URINE COLOR YELLOW; URINE GLUCOSE - DIPSTICK NEGATIVE (NEGATIVE); URINE KETONE NEGATIVE (NEGATIVE); URINE LEUK ESTERASE TRACE (NEGATIVE); URINE NITRITE - DIPSTICK NEGATIVE (Negative); URINE PH 5.5 (4.5-8.0); URINE PROTEIN - DIPSTICK NEGATIVE (NEG-TRACE); URINE SPECIFIC GRAVITY 1.015; URINE UROBILINOGEN - DIPSTICK 0.2 E.U./dL (0.2)
[2018-01-17 12:26] LABS: URINE CLARITY CLEAR
[2018-01-17 12:31] LABS: ALBUMIN 3.6 g/dL (3.2-5.0); ALKALINE PHOSPHATASE 76 u/l (38-126); ANION GAP 13 (6-22 (CALC)); BILIRUBIN, TOTAL 0.4 mg/dL (0.0-1.4); BUN 19 mg/dL (8-23); BUN/CREATININE RATIO 17 (12-20 (CALC)); CARBON DIOXIDE 33 mmol/l (22-30); CHLORIDE 103 mmol/l (95-108); CREATININE 1.2 mg/dL (0.7-1.3); GFR 58 ML/MIN (>=60 (CALC)); GFR FOR AFR.AMER. > 60 ML/MIN (>=60 (CALC)); LIPASE 12 u/l (23-300); POTASSIUM 4.2 mmol/l (3.5-5.1); SGOT/AST 13 u/l (19-48); SODIUM 144 mmol/l (137-146); TOTAL PROTEIN 6.7 g/dL (6.3-8.2)
--- NOTE | 2018-01-17 15:15 | NUR ---
BREATHING TREATMENT GIVEN USING A MOUTH PEICE. BREATHING TECH. FOR GOOD DEPOSITION TO THE LUNGS.
[2018-01-17] MEDS ORDERED: BACTRIM DS1 TAB PO (15:19)
[2018-01-17] MEDS ORDERED: CEPHALEXIN500 M1 PO (15:19)
[2018-01-17 16:43] VITALS: BP 119/58
== END 2018-01-17 16:50 | disposition home or self-care (01) ==
LOC: ED 11:01
PROVIDERS: Family Medicine
DX: L02.214 Cutaneous abscess of groin (principal); I12.9 Hypertensive chronic kidney disease with stage 1 through stage 4 chronic kidney disease, or unspecified chronic kidney disease; E11.22 Type 2 diabetes mellitus with diabetic chronic kidney disease; N18.3 Chronic kidney disease, stage 3 (moderate); I25.10 Atherosclerotic heart disease of native coronary artery without angina pectoris; J44.9 Chronic obstructive pulmonary disease, unspecified; E78.5 Hyperlipidemia, unspecified; Z95.1 Presence of aortocoronary bypass graft; R09.02 Hypoxemia
CPT/HCPCS: Q9967